=== PATIENT | female | born 1995 | race Caucasian/White ===

== ENCOUNTER 2024-03-12 08:43 | Day surgery (SDC) | payer OTHER, SELFPAY ==
--- NOTE | 2024-03-11 18:38 | W.ANESPRE ---
General Info Date of Service Date Performed: 03/12/24 Height: 5 ft 9 in Weight: 124.029 kg Body Mass Index (BMI): 40.4 Surgical Procedure: Operation Date: 03/12/24 11:55 Proposed Procedure Side Surgeon p Tonsillectomy & Possible Adenoidectomy Johnathan Beltrán MD Meds Allergies and Home Medications Allergies Allergy/AdvReac Type Severity Reaction Status Date / Time Penicillins Allergy Hives Verified 03/11/24 12:30 Home Medication Medication Instructions Recorded albuterol sulfate 90 mcg/actuation 2 puff inhalation Q6H PRN 10/11/23 aerosol inhaler (ProAir HFA) ascorbic acid (vitamin C) 500 mg 500 mg PO DAILY 10/11/23 capsule fluoxetine 20 mg capsule 20 mg PO DAILY 10/11/23 levonorgestrel-ethinyl estradiol 1 tab PO DAILY 10/11/23 0.1 mg-20 mcg tablet (Vienva) Current Visit Medications: Current Medications Generic Name Dose Route Start Last Admin Trade Name Freq PRN Reason Stop Dose Admin Ringer's Solution 1,000 mls @ 100 mls/hr 03/12/24 06:00 IV 03/12/24 23:59 INFUSION TAMERA Tranexamic Acid/Sodium Chloride 1,000 mg in 100 mls @ 600 mls/hr 03/12/24 06:00 IVPB 03/12/24 23:59 PREOP TAMERA Clindamycin Phosphate/Dextrose 900 mg in 50 mls @ 50 mls/hr 03/12/24 06:00 Cleocin In D5w IVPB 03/12/24 18:00 PREOP TAMERA IV Miscellaneous Supplies 1 each 03/12/24 06:00 Iv Access IV 03/12/24 23:59 DIRECTED TAMERA Sodium Chloride 0 ml 03/12/24 06:00 Normal Saline Flush 10 Ml Syr IV 03/12/24 23:59 PRN PRN Sodium Chloride 0 ml 03/12/24 06:00 Normal Saline 10 Ml Vial IJ 03/12/24 23:59 DIRECTED PRN Sterile Water 0 ml 03/12/24 06:00 Water,Injection,Sterile 10 Ml Vial IJ 03/12/24 23:59 DIRECTED PRN PFSH Active Problems Active Problems: Problem Status Onset Code Chronic tonsillitis J35.01 Tonsil stone J35.8 Medical History Medical History Immunoglobulin A vasculitis Pharyngitis Morbid obesity Dyspareunia, female Candidal intertrigo Asthma Surgical History Surgical History [place] teeth extracted History of cholecystectomy Tobacco Smoking/Tobacco Use Status: Never Alcohol Alcohol Intake: current Alcohol intake frequency: holidays/special occasions only Substance Use Substance use: Never Substance use type: does not use Vital Signs and Lab Results Vital Signs Most Recent Vital Signs in EMR: Temp Pulse Resp BP Pulse Ox 36.4 C L 85 16 131/84 98 03/12/24 08:51 03/12/24 08:51 03/12/24 08:51 03/12/24 08:51 03/12/24 08:51 Lab Results Blood Type / Crossmatch: No Data to Display Complete Blood Count: No Data to Display Complete Metabolic Panel: No Data to Display Liver Function Panel: No Data to Display Coagulation Panel: No Data to Display Cardiac Panel: No Data to Display Arterial Blood Gas: No Data to Display Venous Blood Gas: No Data to Display Pancreas Panel: No Data to Display Thyroid Panel: No Data to Display Infectious Disease: No Data to Display Blood Cultures: No Data to Display Toxicology Panel: No Data to Display Panel: No Data to Display Anesthesia Assessment and Plan Anesthesia History Personal History: No History of Anesthesia Complications Family History: No Family History of Anesthesia Complications Exercise Tolerance Exercise Tolerance: Metabolic Equivalents>4 Pertinent Negatives Pertinent Negatives: No Symptoms of GERD, No Major Cardiovascular Symptoms or Complaints and No Major Pulmonary Symptoms or Complaints Cardiac & Pulmonary Exam Cardiac Exam: Normal S1/S2 Heart Sounds Pulmonary Exam: Clear Bilateral Breath Sounds Implantable Cardiac Device Does patient have a Pacemaker or an ICD?: No Airway Exam Known Difficult Airway: No Mallampati Class: 1 Mouth Opening: Normal (> 3cm) Thyromental Distance: Greater than 3 cm Neck Range of Motion: Full ROM Neck Circumference: Normal Teeth Condition: Normal Dentition ASA Classification ASA Score: ASA 2 Emergency Case?: No NPO Status NPO Status: NPO Clears >2 hours, Solids >8 hours Status Status: Negative HCG Anesthesia Plan Resuscitation Status: Full Code Anesthesia Technique: General Anesthesia Airway Planned: Endotracheal Tube Monitors Used: Standard Monitors Preoperative Comments:: 29 yo female for tonsil removal. Sig PMHx: IgA vasculitis, BMI 39.8, asthma. never smoker, occ EtOH.
[2024-03-12] VITALS (23 sets, daily range): BP systolic 112–160; BP diastolic 64–94; PULSE 69–86; RESP 14–25; TEMP 35.8–36.8; O2SAT 93–100; BMI 40.4
[2024-03-12] MEDS: Lactated Ringers 1,000 ML 100 ML IV (10:09)
--- NOTE | 2024-03-12 10:14 | ANES.PREOP_ITS ---
General Info Date of Service Date Performed: 03/12/24 Height: 5 ft 9 in Weight: 122.4 kg Body Mass Index (BMI): 39.8 Surgical Procedure: Operation Date: 03/12/24 11:55 Proposed Procedure Side Surgeon p Tonsillectomy & Possible Adenoidectomy Johnathan Beltrán MD Meds Allergies and Home Medications Allergies Allergy/AdvReac Type Severity Reaction Status Date / Time Penicillins Allergy Hives Verified 03/11/24 12:30 Home Medication Medication Instructions Recorded albuterol sulfate 90 mcg/actuation 2 puff inhalation Q6H PRN 10/11/23 aerosol inhaler (ProAir HFA) ascorbic acid (vitamin C) 500 mg 500 mg PO DAILY 10/11/23 capsule fluoxetine 20 mg capsule 20 mg PO DAILY 10/11/23 levonorgestrel-ethinyl estradiol 1 tab PO DAILY 10/11/23 0.1 mg-20 mcg tablet (Vienva) Current Visit Medications: Current Medications Generic Name Dose Route Start Last Admin Trade Name Freq PRN Reason Stop Dose Admin Ringer's Solution 1,000 mls @ 100 mls/hr 03/12/24 06:00 03/12/24 10:09 IV 03/12/24 23:59 100 mls/hr INFUSION TAMERA Administration Tranexamic Acid/Sodium Chloride 1,000 mg in 100 mls @ 600 mls/hr 03/12/24 06:00 IVPB 03/12/24 23:59 PREOP TAMERA Clindamycin Phosphate/Dextrose 900 mg in 50 mls @ 50 mls/hr 03/12/24 06:00 Cleocin In D5w IVPB 03/12/24 18:00 PREOP TAMERA IV Miscellaneous Supplies 1 each 03/12/24 06:00 Iv Access IV 03/12/24 23:59 DIRECTED TAMERA Sodium Chloride 0 ml 03/12/24 06:00 Normal Saline Flush 10 Ml Syr IV 03/12/24 23:59 PRN PRN Sodium Chloride 0 ml 03/12/24 06:00 Normal Saline 10 Ml Vial IJ 03/12/24 23:59 DIRECTED PRN Sterile Water 0 ml 03/12/24 06:00 Water,Injection,Sterile 10 Ml Vial IJ 03/12/24 23:59 DIRECTED PRN PFSH Active Problems Active Problems: Problem Status Onset Code Chronic tonsillitis J35.01 Tonsil stone J35.8 Medical History Medical History Immunoglobulin A vasculitis Pharyngitis Morbid obesity Dyspareunia, female Candidal intertrigo Asthma Surgical History Surgical History [place] teeth extracted History of cholecystectomy Tobacco Smoking/Tobacco Use Status: Never Alcohol Alcohol Intake: current Alcohol intake frequency: holidays/special occasions only Substance Use Substance use: Never Substance use type: does not use Vital Signs and Lab Results Vital Signs Most Recent Vital Signs in EMR: Most Recent Vital Signs Temp Pulse Resp BP Pulse Ox 36.4 C L 85 16 131/84 98 03/12/24 08:51 03/12/24 08:51 03/12/24 08:51 03/12/24 08:51 03/12/24 08:51 Point of Care Results Point of Care Results: POC- Test(urine) Negative 03/12/24 09:10 Lab Results Blood Type / Crossmatch: No Data to Display Complete Blood Count: No Data to Display Complete Metabolic Panel: No Data to Display Liver Function Panel: No Data to Display Coagulation Panel: No Data to Display Cardiac Panel: No Data to Display Arterial Blood Gas: No Data to Display Venous Blood Gas: No Data to Display Pancreas Panel: No Data to Display Thyroid Panel: No Data to Display Infectious Disease: No Data to Display Blood Cultures: No Data to Display Toxicology Panel: No Data to Display Panel: No Data to Display Anesthesia Assessment and Plan Anesthesia History Personal History: No History of Anesthesia Complications Family History: No Family History of Anesthesia Complications Implantable Cardiac Device Does patient have a Pacemaker or an ICD?: No
--- NOTE | 2024-03-12 11:14 | PDOC.DSDIS_ITS ---
Date of service: 03/12/24 Time of Service: 11:15 Discharge Plan Disposition Patient Disposition: Home Condition: Good Discharge Details Reason For Visit: Tonsillectomy Attending Provider: Johnathan Beltrán Primary Care Provider: Malini Gomez Home Meds and New Rx's Prescriptions: No Action fluoxetine 20 mg capsule 20 mg PO DAILY albuterol sulfate [ProAir HFA] 90 mcg/actuation HFA aerosol inhaler 2 puff inhalation Q6H PRN levonorgestrel-ethinyl estrad [Vienva] 0.1-20 mg-mcg tablet 1 tab PO DAILY ascorbic acid (vitamin C) 500 mg capsule 500 mg PO DAILY Discharge Instructions Additional Instructions: My cell phone number is [phone]. Please call with any questions or concerns. If you are unable to reach me and you feel it is emergency, please call 911 or proceed to the emergency room Stand Alone Forms: ENT- T&A InstrJean-Claude Beltrán Referrals: Johnathan Beltrán MD [ [facility] STAFF PHYSICIAN] - (Please call for appointment prior to patient's departure) Discharge Orders Discharge Orders: Discharge Order (Routine); Ordered 03/12/24 Ordered By: Johnathan Beltrán
--- NOTE | 2024-03-12 11:15 | ROE_ITS ---
Date of service: 03/12/24 Time of Service: 11:16 Operative Note Operative Note DATE OF PROCEDURE: 03/12/24 PRE-OP DIAGNOSIS: Chronic tonsillitis POST-OP DIAGNOSIS: same PROCEDURE: Tonsillectomy SURGEON: Johnathan Beltrán ANESTHESIA TYPE: General LMA/ETT Refer to Anesthesia Record ESTIMATED BLOOD LOSS: 75 PATHOLOGY: other (Tonsils) COMPLICATIONS: None Patient was transported to: PACU Patient's condition: stable Indications: Chronic tonsillitis, medically recalcitrant Findings: 3+ tonsils with copious cryptic debris, adenoids atrophic, no debris, palate intact to inspection and palpation. Procedure Description: After obtaining an adequate level of general endotracheal anesthesia the patient was positioned in supine position and prepped and draped in appropriate fashion. A Ken-Ebenezer mouthgag was carefully introduced into the oral cavity and opened revealed a soft and hard palate which were examined revealing no evidence of an occult cleft palate. Adenoids were examined revealing no significant residual adenoids and no debris. Attention was then turned to the tonsils. Each tonsil was pulled medially and posteriorly and the submucosal spaces around the tonsil injected with 0.5% Marcaine with 1-100,000 epinephrine. 12 blade was then used to incise mucosa along the superior, anterior, and posterior edges of the tonsil and then a Darnell elevator used to disarticulate the tonsil from the superior tonsillar fossa. Dissection was continued down to the inferior pole using a Hernandez blade and then a tonsil snare was used to amputate the tonsil from the tonsillar fossa. Once been accomplished bilaterally, electrocautery suction tip catheter set on 15 W coagulation was used to afford relative hemostasis within the tonsillar beds. The Ken-Ebenezer mouthgag was relaxed and reopened revealing no further bleeding. Valsalva failed to induce further bleeding. The Ken- Ebenezer mouthgag was relaxed and removed and the patient was then awakened and extubated by anesthesia and taken the recovery room in stable condition. I was present throughout the entire case.
[2024-03-12] MEDS: CLINDAMYCIN 900 MG/50 ML BAG 50 MG IVPB (11:19)
[2024-03-12] MEDS: TRANEXAMIC ACID/SOD. CHL. 1,000 MG/100 ML BAG 600 MG IVPB (11:33)
--- NOTE | 2024-03-12 11:45 | TONSIL_PTH ---
PATIENT: Cindy Wharton LOC: [facility] U#:[id number] AGE/SX: 29/F ROOM: RE03/12/[address]: Johnathan Beltrán MD : 1995 BED: DIS: 03/12/2024 SPEC #: [id number] RECD: 03/12/24 13:17 STATUS: SWAPNA REQ #: [id number] STEPHAN: 03/12/24 11:[address]: Johnathan Beltrán DEPT: Surgical Specimen RECD BY: Shante Arteaga ENTERED: 03/12/24 13:18 SP TYPE: TONSIL OTHR DR: Malini Gomez Tissues: 1 - TONSIL AGE 17 & OVER 2 - TONSIL AGE 17 & OVER Procedures: GROSS AND MICRO LEVEL 3 Comments: [id number]
[2024-03-12] MEDS: Bupivacaine 0.5% Pres-Free W/EPI 10 ML VIAL (11:56)
[2024-03-12] MEDS: ACETAMINOPHEN 1,000 MG/100 ML BTL 400 MG IVPB (12:30)
--- NOTE | 2024-03-12 12:43 | W.ANESPOSTOP ---
Postoperative Evaluation Date, Time and Location Date Performed: 03/12/24 Time Performed: 12:43 Patient Location: Day Surgery Unit Vital Signs Most Recent Imported Vital Signs: Most Recent Vital Signs Temp Pulse Resp BP Pulse Ox 36.7 C 83 14 153/86 H 96 03/12/24 12:40 03/12/24 12:10 03/12/24 12:10 03/12/24 12:10 03/12/24 12:40 Pain Score Most Recent Pain Score: Most Recent Pain Score Pain Level 7 03/12/24 12:40 Assessment Mental Status: Awake (Alert & Oriented to Patient Baseline) Airway and Respiratory Function: Patent airway with normal (patient baseline) respiratory exam Cardiovascular Function: Hemodynamically Stable Hydration Status: Adequately Hydrated Nausea & Vomiting: No Nausea or Vomiting Pain: Pain is tolerable per patient Peripheral Nerve Block: Patient did not receive a nerve block
[2024-03-12] MEDS: HYDROmorphone 2 MG/ML SYR IVP (12:45)
[2024-03-12] MEDS: Normal Saline 10 ML VIAL IJ (12:45)
[2024-03-12] MEDS: Normal Saline Flush 10 ML SYR IV (14:06)
[2024-03-12] MEDS: Droperidol 5 MG/2 ML VIAL 0.625 MG IVP (14:09)
== END 2024-03-12 15:01 | disposition home or self-care (01) ==
PROVIDERS: PCP Internal Medicine; Visit Provider Otolaryngology
PROC: (CPT 42826; principal; 2024-03-12 11:45)
DX: J35.01 Chronic tonsillitis (principal); J45.909 Unspecified asthma, uncomplicated; E66.01 Morbid (severe) obesity due to excess calories; Z68.39 Body mass index [BMI] 39.0-39.9, adult
CPT/HCPCS: 42826; 81025; 88304; J0131; J0171; J0330; J0461; J0737; J1100; J1170; J1171; J1790; J2001; J2250; J2405; J2704